=== PATIENT | female | born 1950 | race Caucasian/White ===

== ENCOUNTER 2017-05-31 15:40 | Inpatient (IN) | payer OTHER ==
[~2017-05-31] VITALS: Ht 162.6 cm; Wt 119.3 kg
--- NOTE | ~2017-05-31 | 2DMMODE ---
[facility] [address] [place] [address] 2 D/M-MODE ECHOCARDIOGRAM Name: VALENCIA ARZOLA Room #: 227-P [facility] M.R.#: [id number] Admission: 05/31/17 Attend Phys: Dc Diaz, Discharge: Date of : 54 Date of Service: 06/03/17 1009 Report #: [id number] THIS REPORT FOR: //name// APPROVED REPORT Study performed: 06/03/2017 09:32:12 EXAM: Comprehensive 2D, Doppler, and color-flow Echocardiogram Patient Location: Echo lab Status: routine BSA: 2.20 HR: 92 bpm BP: 161/95 mmHg Rhythm: NSR Other Information Study Quality: Good Indications Dyspnea. Hx: HTN, PE, CVA, DM, morbid obesity. 2D Dimensions RVDd: 36.56 mm LVEF(%): 74.17 (>50%) IVSd: 9.05 (7-11mm) LVOT Diam: 19.27 (18-24mm) LVDd: 49.93 mm PWd: 9.01 (7-11mm) Ascending Ao: 31.43 (22-36mm) LVDs: 28.34 (25-40mm) Aortic Root: 28.88 mm Brown's LVEF: 74.17 % Volumes Left Atrial Volume (Systole) Single Plane 4CH: 51.12 mL Single Plane 2CH: 49.17 mL LA ESV Index: 25.00 mL/m2 Aortic Valve AoV Peak León.: 2.09 m/s AO Peak Gr.: 17.52 mmHg LVOT Max P.16 mmHg AO Mean Gr.: 9.95 mmHg AO V2 Mean: 1.52 m/s LVOT Max V: 1.34 m/s AO V2 VTI: 44.17 cm BRITNEY Vmax: 1.86 cm2 Mitral Valve [facility] [address] [place] [address] 2 D/M-MODE ECHOCARDIOGRAM Name: AVLENCIA ARZOLA Room #: 227-P [facility] M.R.#: [id number] Admission: 05/31/17 Attend Phys: Dc Diaz, Discharge: Date of : 54 Date of Service: 06/03/17 1009 Report #: [id number] E/A Ratio: 0.9 MV Decel. Time: 211.42 ms MV E Max León.: 1.14 m/s MV A León.: 1.30 m/s MV PHT: 61.31 ms IVRT: 62.28 ms Pulmonary Valve PV Peak León.: 1.54 m/s PV Peak Gr.: 9.47 mmHg Pulmonary Vein P Vein S: 0.78 m/s P Vein A: 0.42 m/s P Vein D: 0.60 m/s P Vein A Dur.: 114.2 msec P Vein S/D Ratio: 1.30 Tricuspid Valve TR Peak León.: 2.81 m/s RAP Estimate: 5.00 mmHg TR Peak Gr.: 31.60 mmHg PA Pressure: 37.00 mmHg Left Ventricle The left ventricle is normal size. There is normal LV segmental wall motion. There is normal left ventricular wall thickness. Left ventricular systolic function is normal. LVEF is 60-65%. Mild diastolic dysfunction is present (impaired relaxation pattern). Right Ventricle The right ventricle is normal size. The right ventricular systolic function is normal. Atria The left atrium size is normal. The right atrium size is normal. Aortic Valve The aortic valve is grossly normal in structure. No aortic regurgitation is present. There is no aortic valvular stenosis. Mitral Valve The mitral valve is normal in structure. Mild mitral regurgitation. Tricuspid Valve The tricuspid valve is normal in structure. [place] [address] 2 D/M-MODE ECHOCARDIOGRAM Name: VALENCIA ARZOLA Room #: 227-[facility] IN [facility].#: [id number] Admission: 05/31/17 Attend Phys: Dc Diaz, Discharge: Date of : 54 Date of Service: 06/03/17 1009 Report #: [id number] regurgitation. Estimated PAP is 35-40mmHg. Pulmonic Valve The pulmonary valve is normal in structure. Trace pulmonic regurgitation. Great Vessels The aortic root is normal in size. The ascending aorta is normal in size. IVC is normal in size and collapses >50% with inspiration. Pericardium There is no pericardial effusion. <Conclusion> The left ventricle is normal size. Left ventricular systolic function is normal. LVEF is 60-65%. Mild diastolic dysfunction is present (impaired relaxation pattern). The right ventricle is normal size. The left atrium size is normal. The aortic valve is grossly normal in structure. There is no aortic valvular stenosis. Mild mitral regurgitation. Trace to mild tricuspid regurgitation. Estimated PAP is 35-40mmHg. The aortic root is normal in size. There is no pericardial effusion. <ELECTRONICALLY SIGNED> By: Manjinder Osei MD, FACC 06/03/17 1009 1009 1009 Manjinder Osei MD, FACC /INF
--- NOTE | ~2017-05-31 | EKG ---
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
--- NOTE | ~2017-05-31 | HC ---
[facility] [place] [address] CONSULTATION Name: VALENCIA ARZOLA Room #: 227-P ADM IN M.R.#: [id number] Admission: 05/31/17 Attend Phys: Dc Diaz MD Discharge: Date of : 54 Report #: [id number] THIS REPORT FOR: //name// CC: Dc Omer REFERRING PHYSICIAN: Dr. Dc Diaz. REASON FOR REFERRAL: Dyspnea. HISTORY OF PRESENT ILLNESS: The patient is a 67-year-old white female who presents to Emergency Room with worsening dyspnea, bronchospasm. A pulmonary consultation was requested. The patient is followed longitudinally by Dr. Ruby. She is followed for asthma. She was doing fairly well until about last Tuesday she aspirated a piece of turkey. She was able to cough this out. Ever since then, she has had trouble with bronchospasm and dyspnea. With worsening symptoms, she presented to the Emergency Room. Otherwise, denies any recent febrile illness, night sweats or chills, chest pain, productive cough. Admitting chest x-ray shows mild bibasilar atelectasis. Otherwise, no obvious infiltrates. PAST MEDICAL HISTORY: Notable for depression, panic disorder, agoraphobia, diabetes mellitus type 1, hypertension, allergies, hypogammaglobulinemia, asthma, hypothyroidism, gastroesophageal reflux disease, obstructive sleep apnea on CPAP. PAST SURGICAL HISTORY: Unremarkable. ALLERGIES: DOXYCYCLINE, reactions not specified; LISINOPRIL, reactions not specified; following SULFA drugs, reactions not specified. HOME MEDICATIONS: Reviewed. These include Zyrtec, Dulera 100 mcg 2 puffs twice a day. FAMILY HISTORY: Noncontributory. SOCIAL HISTORY: She has never smoked. Denies any alcohol use. REVIEW OF SYSTEMS: As mentioned above, otherwise 10-point system review negative. PHYSICAL EXAMINATION: [facility] [address] [place] [address] CONSULTATION Name: VALENCIA ARZOLA Room #: 227-P [facility] IN [facility]#: [id number] Admission: 05/31/17 Attend Phys: Dc Diaz MD Discharge: Date of : 54 Report #: [id number] GENERAL: She is awake, alert, in no apparent distress. VITAL SIGNS: Temperature is 98 degrees Fahrenheit, pulse is 110, respiratory rate is 18, blood pressure 140/80 mmHg, saturation 95%. HEENT: Normocephalic, atraumatic. NECK: Supple, without lymphadenopathy or thyromegaly. CHEST: Breath sounds are fair bilaterally with mild expiratory wheezes. CARDIOVASCULAR: Normal S1, S2. There are no murmurs or gallop. There is no JVD. There is no carotid bruit. Pulses are 2+/4+ bilaterally. ABDOMEN: Soft, nontender, no organomegaly or masses felt. GENITOURINARY: Deferred. RECTAL: Deferred. EXTREMITIES: There is no edema, cyanosis or clubbing. LABORATORY DATA: Chest x-ray as mentioned above showing mild bibasilar atelectasis. CT chest angiogram is reviewed showing no evidence of pulmonary embolus, multiple low density lesions throughout the liver are noted. These lesions are previously noted in 2009 and appears to be unchanged. Electrolytes are normal. Liver function enzymes are mildly grossly unremarkable. WBC 4700, hemoglobin 13.9, platelets are normal, eosinophil count is normal. Albumin 3.6. IMPRESSION: 1. Asthma exacerbation, likely due to recent aspiration. 2. Apparent aspiration, etiology unclear, but may need further evaluation. 3. Obstructive sleep apnea, on CPAP. 4. History of major depression and panic disorder. 5. Diabetes mellitus type 1. 6. Hypertension. 7. Hypogammaglobulinemia. 8. Hypothyroidism, uncertain. 9. Gastroesophageal reflux disease. RECOMMENDATION: Recommend corticosteroids, bronchodilators along with broad spectrum antibiotics. Would recommend swallowing evaluation with speech consultation. DVT and GI prophylaxis is recommended. Thank you for this consultation. <ELECTRONICALLY SIGNED> By: Ney Omer MD 06/02/17 1311 1644 20 Ney Omer MD /nt
[~2017-05-31 15:40] MED LIST: BIAXIN 250MG T250 MG PO; DEPAKOTE500 MG PO; DITROPAN XL5 M1 PO; DULERA 100 MCG/13 GM INH; FLONASE INH; HUMALOG100 UNIT/1 SQ; INDAPAMIDE1.25 MG PO; LANTUS SUBQ; NEXIUM40 MG PO; NORVASC 5 MG TAB5 MG PO; POTASSIUM CHLO20 ME1 PO; SINGULAIR 10 MG10 M1 PO; SYNTHROID50 MCG PO; TRAMADOL HCL50 MG PO; ZANTAC 150MG T150 M1 PO; ZOLOFT100 MG PO; ZYRTEC 10 MG TA10 M1 PO; [UNRECOGNIZED DRUG - OTHER] SQ
[2017-05-31 16:45] VITALS: BP 119/50
[2017-05-31 16:55] LABS: HEMATOCRIT 41.8 % (37.0-47.0); HEMOGLOBIN 13.9 gm/dL (12.0-15.0); MCH 30.5 pg (26.0-34.0); MCHC 33.4 g/dL (28.0-37.0); MCV 91.4 fL (80.0-100.0); PLATELET COUNT 190 thou/uL (150-400); RBC 4.57 mil/uL (4.20-5.00); RDW 12.9 % (10.5-14.5); WBC 4.7 thou/uL (4.0-11.0)
[2017-05-31 17:09] LABS: ANION GAP 5 mmol/L (7-16); BUN 11 mg/dL (7-18); CALCIUM 9.1 mg/dL (8.5-10.1); CHLORIDE 102 mmol/L (98-107); CO2 29 mmol/L (21-32); CREATININE 1.3 mg/dL (0.6-1.0); GLUCOSE 187 mg/dL (74-106); POTASSIUM 3.8 mmol/L (3.5-5.1); SODIUM 136 mmol/L (136-145)
[2017-05-31 17:10] LABS: APTT 26.8 Seconds (24.5-32.8)
[2017-05-31 17:18] LABS: ALBUMIN 3.6 g/dL (3.4-5.0); MAGNESIUM 2.1 mg/dL (1.8-2.4); SGOT 27 U/L (15-37); SGPT 26 U/L (30-65); TOTAL BILIRUBIN 0.3 mg/dL (<0.1-1.0); TOTAL PROTEIN 7.1 g/dL (6.4-8.2); TROPONIN-I < 0.04 ng/mL (<0.06)
[2017-05-31 20:02] VITALS: BP 146/87
[2017-05-31 21:02] VITALS: BP 140/61
[2017-06-01 00:31] VITALS: BP 143/56
[2017-06-01 05:45] VITALS: BP 123/59
[2017-06-01 09:53] VITALS: BP 146/80
[2017-06-01] MEDS ORDERED: TOPROL XL25 MG PO (11:22)
[2017-06-01] MEDS ORDERED: LOSARTAN POTAS100 MG PO (11:23)
[2017-06-01] MEDS ORDERED: PRAVACHOL40 MG PO (11:23)
[2017-06-01] MEDS ORDERED: VENLAFAXINE HC150 M1 PO (11:24)
[2017-06-01] MEDS ORDERED: XYZBAC TABLET1 EACH PO (11:28)
[2017-06-01] MEDS ORDERED: VITAMIN D2000 UNI1 PO (11:30)
[2017-06-01] MEDS ORDERED: VENTOLIN HFA INH8 GM INH (11:30)
[2017-06-01 17:04] VITALS: BP 150/44
[2017-06-01 20:16] VITALS: BP 139/64
[2017-06-02 07:10] VITALS: BP 149/75
[2017-06-02 07:30] LABS: HEMATOCRIT 39.4 % (37.0-47.0); HEMOGLOBIN 13.3 gm/dL (12.0-15.0); MCH 30.4 pg (26.0-34.0); MCHC 33.7 g/dL (28.0-37.0); RBC 4.38 mil/uL (4.20-5.00); WBC 11.6 thou/uL (4.0-11.0)
[2017-06-02 07:45] LABS: CALCIUM 9.2 mg/dL (8.5-10.1); CREATININE 1.4 mg/dL (0.6-1.0); POTASSIUM 3.8 mmol/L (3.5-5.1)
[2017-06-02 20:31] VITALS: BP 139/64
[2017-06-02 22:19] LABS: BE(vivo) -4.5 mmol/L (-2 to +3); HCO3 19.2 mmol/L (22.0-26.0); PCO2 31.6 mmHg (35.0-45.0); PO2 80.9 mmHg (80.0-100.0); pH 7.401 (7.360-7.450); sO2 96.1 % (92.0-98.0)
[2017-06-03 07:55] VITALS: BP 140/77
[2017-06-03] MEDS ORDERED: CEFUROXIME500 MG PO (14:31)
[2017-06-03] MEDS ORDERED: AZITHROMYCIN 2250 MG PO (14:32)
[2017-06-03] MEDS ORDERED: PREDNISONE 10 M10 MG PO (14:33)
[2017-06-03 15:01] VITALS: BP 161/95
== END 2017-06-03 16:06 | disposition home or self-care (01) | DRG 178 ==
LOC: ER 15:40 → EROBS 19:03 → 4N 19:03 → SICU 06-01 18:12 → ENTRNSPT 06-03 15:27 → EDTRNSPTSTS 06-03 16:02 → SICU 06-03 16:06
PROVIDERS: Internal Medicine Pulmonary Disease; Physician Assistant
PROC: B24BZZ4 Ultrasonography of Heart with Aorta, Transesophageal (ICD-10-PCS; principal; 2017-06-03)
DX: J69.0 Pneumonitis due to inhalation of food and vomit (principal); J45.901 Unspecified asthma with (acute) exacerbation; F32.9 Major depressive disorder, single episode, unspecified; F41.0 Panic disorder [episodic paroxysmal anxiety]; F41.1 Generalized anxiety disorder; G47.33 Obstructive sleep apnea (adult) (pediatric); E55.9 Vitamin D deficiency, unspecified; I27.20 Pulmonary hypertension, unspecified; I10 Essential (primary) hypertension; E10.9 Type 1 diabetes mellitus without complications; K21.9 Gastro-esophageal reflux disease without esophagitis; E03.9 Hypothyroidism, unspecified; Z79.899 Other long term (current) drug therapy; Z88.2 Allergy status to sulfonamides; Z88.8 Allergy status to other drugs, medicaments and biological substances
CPT/HCPCS: 10091; 15000

== ENCOUNTER → 2017-06-29 | Outpatient (CLI) | payer OTHER ==
[~2017-06-29] MED LIST changes: +AZITHROMYCIN 2250 MG PO; +CEFUROXIME500 MG PO; +LOSARTAN POTAS100 MG PO; +PRAVACHOL40 MG PO; +PREDNISONE 10 M10 MG PO; +TOPROL XL25 MG PO; +VENLAFAXINE HC150 M1 PO; +VENTOLIN HFA INH8 GM INH; +VITAMIN D2000 UNI1 PO; +XYZBAC TABLET1 EACH PO
== END ==
LOC: CAT 06:35
DX: J45.991 Cough variant asthma (principal); Z98.890 Other specified postprocedural states

== ENCOUNTER → 2017-08-05 | Outpatient (CLI) | payer OTHER ==
--- NOTE | ~2017-08-05 | 2DMMODE ---
[facility] [place] [address] 2 D/M-MODE ECHOCARDIOGRAM Name: VALENCIA ARZOLA Room #: REG CL [facility]#: [id number] Admission: 08/05/17 Attend Phys: Kimberlee Mcgovern Discharge: Date of : 54 Date of Service: 08/05/17 1433 Report #: [id number] THIS REPORT FOR: //name// APPROVED REPORT Study performed: 08/05/2017 13:17:10 EXAM: Limited 2D, Doppler, and color-flow Echocardiogram Patient Location: Out-Patient Status: routine BSA: 2.20 HR: 75 bpm BP: 155/88 mmHg Rhythm: NSR Other Information Study Quality: Adequate Indications Follow up echo for SOB, PHTN. Hx: HTN, PE, DM (Complete echo done 06/03/17) Aortic Valve AoV Peak León.: 1.53 m/s AO Peak Gr.: 9.31 mmHg Tricuspid Valve TR Peak León.: 2.37 m/s RAP Estimate: 5.00 mmHg TR Peak Gr.: 22.53 mmHg PA Pressure: 28.00 mmHg Left Ventricle The left ventricle is normal size. There is normal LV segmental wall motion. Left ventricular systolic function is normal. LVEF is 60%. Right Ventricle The right ventricle is normal size. The right ventricular systolic function is normal. Atria Left atrium is at the upper limits of normal. The right atrium size is normal. Aortic Valve [facility] [address] [place] [address] 2 D/M-MODE ECHOCARDIOGRAM Name: VALENCIA ARZOLA Room #: REG CL [facility]#: [id number] Admission: 08/05/17 Attend Phys: Kimberlee Mcgovern Discharge: Date of : 54 Date of Service: 08/05/17 1433 Report #: [id number] Aortic valve is trileaflet. No aortic regurgitation is present. There is no aortic valvular stenosis. Mitral Valve The mitral valve is normal in structure. Mild to moderate mitral regurgitation. Tricuspid Valve The tricuspid valve is normal in structure. Mild tricuspid regurgitation. Estimated PAP is 28mmHg. Great Vessels IVC is normal in size and collapses >50% with inspiration. Pericardium There is no pericardial effusion. <Conclusion> The left ventricle is normal size. Left ventricular systolic function is normal. The right ventricle is normal size. Left atrium is at the upper limits of normal. Aortic valve is trileaflet. Mild to moderate mitral regurgitation. Mild tricuspid regurgitation. Estimated PAP is 28mmHg. <ELECTRONICALLY SIGNED> By: Torrey Hutchins MD 08/05/17 1433 143 1433 Torrey Hutchins MD /IDALIA
== END ==
LOC: CV 12:58
DX: I08.3 Combined rheumatic disorders of mitral, aortic and tricuspid valves (principal); I10 Essential (primary) hypertension; E11.9 Type 2 diabetes mellitus without complications

== ENCOUNTER → 2018-04-12 | Outpatient (CLI) | payer OTHER ==
[~2018-04-12] VITALS: Ht 162.6 cm; Wt 119.7 kg
[~2018-04-12] MED LIST changes: +AMERGE2.5 MG PO; +ASPIRIN325 PO; +BENICAR40 MG PO; +CRESTOR20 MG PO; +DULOXETINE HCL60 MG PO; +HYDROCHLOROTHIA25 M2 PO; +PRILOSEC 10MG C10 MG PO; +SYMBICORT160 MCG/4. INH
[2018-04-12 07:21] LABS: HEMATOCRIT 42.5 % (37.0-47.0); HEMOGLOBIN 14.5 gm/dL (12.0-15.0); MCH 30.8 pg (26.0-34.0); MCHC 34.1 g/dL (28.0-37.0); MCV 90.2 fL (80.0-100.0); RBC 4.71 mil/uL (4.20-5.00); RDW 13.1 % (10.5-14.5); WBC 6.7 thou/uL (4.0-11.0)
[2018-04-12 07:29] LABS: CALCIUM 9.5 mg/dL (8.5-10.1); CREATININE 1.2 mg/dL (0.6-1.0); POTASSIUM 3.7 mmol/L (3.5-5.1)
[2018-04-12 07:30] VITALS: BP 128/89
--- NOTE | 2018-04-12 08:39 | EKG ---
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1950 Requested By: Manjinder Osei Order Number: [id number] MD: Den Castillo Measurements Intervals [place] Rate: 63 P: -1 WA: 158 QRS: -18 QRSD: 98 T: 23 QT: 409 QTc: 419 Interpretive Statements Sinus rhythm Abnormal R-wave progression, early transition Inferior infarct, old Baseline wander in lead(s) V3 Compared to ECG 05/31/2017 16:40:30 No significant change was found Electronically Signed On 04-12-2018 8:39:14 PRIMER [employer]OXER by Den Castillo [email or web address] ��������������������������������������������� <ELECTRONICALLY SIGNED> ���������������������������������������� By: Den Castillo MD, [facility] ��������������������������������������������� 04/12/18 0839 0724 Den Castillo MD, [facility] /EPI
--- NOTE | 2018-04-12 13:04 | CATHLAB ---
[facility] [address] [place] [address] INVASIVE PROCEDURE REPORT Name: VALENCIA ARZOLA [id number] ������������� Admission: 04/12/18 ������������� Attend Phys: Manjinder Osei, Discharge: ��� ������������� ��� Date of : 54 Date of Service: 04/12/18 1304 �� Report #: [id number] �������� ��������������������������������������������[id number] THIS REPORT FOR: //name// APPROVED REPORT Study performed: 04/12/2018 08:35:24 Patient Details Patient Status: Out-Patient Room #: The patient is a 67 year-old female Event Personnel Manjinder Osei Contract Negotiator, Antwon Guillen RN, Criss, Griselda Monitor, Geraldo Diggs Scrub Procedures Performed Art Access - R femoral artery* Neeraj Access - R femoral vein 51131 Initial Mod Sed Same Phys/QHP Gr5y [id number] 20560 Mod Sed Same Phys/QHP Ea 260437 Right and Left Heart Cath w/or w/o Coronarie [id number] [facility] Aortogram Abdominal Peripheral Angio 054695 Hemostasis w/ Mynx Indication Chest pain Procedure Narrative The patient was brought electively to the Cardiac Catheterization Laboratory and was prepped and draped in a sterile manner. The Right Groin^ was infiltrated with 1% Lidocaine subcutaneous anesthesia. A Right Heart Catheterization was performed with a 7 Fr. [place]-Charity catheter and pressure were recorded. Cardiac outputs were obtained by the Thermal Dilution method. A PINNACLE 6FR Sheath #[id number] sheath was inserted into the RFA^. Coronary angiography was performed using coronary diagnostic catheters. The right coronary system was accessed and visualized with a JR 4 catheter. The left coronary system was accessed and visualized with a Pigtail catheter. The left ventricle was accessed and visualized with a JL 4 catheter. Left ventriculogram was performed in BRUCE projection. An aortogram of the abdominal aorta was performed. Pre-demployment femoral angiogram was performed . Closure device was deployed with a 6 Fr Mynx. The patient tolerated the procedure well and there were no complications associated with the procedure. There was no hematoma. Intraoperative Conscious Sedation Sedation start time: 08:52 Case end Time: [facility] [address] [place] [address] INVASIVE PROCEDURE REPORT Name: VALENCIA ARZOLA [facility] [id number] ������������� Admission: 04/12/18 ������������� Attend Phys: Manjinder Osei, Discharge: ��� ������������� ��� Date of : 54 Date of Service: 04/12/18 1304 �� Report #: [id number] �������� ��������������������������������������������[id number] 09:24 Fentanyl 50 mcg Versed 2 mg Fluoro Time: 2.04 minutes Dose: DAP 4351.00 cGycm2 408 mGy Contrast Type and Amount: Visipaque 110 ml Hemodynamics The right atrial mean pressure is 19 mmHg. The right ventricular pressure is 43/9 mmHg. The pulmonary artery pressure is 45/14 mmHg with a mean of 29 mmHg. The mean pulmonary capillary wedge pressure is 20 mmHg. The aortic pressure is 126/61 mmHg with a mean of 82 mmHg. The left ventricular pressure is 123/9 mmHg with a mean of mmHg. The left ventricular end diastolic pressure is 25 mmHg. The cardiac output using thermo method is 4.45 L/min. The cardiac index using thermo method is 2.02 L/min/m2. Conclusion #1 successful right heart catheterization with cardiac output by thermodilution see above hemodynamics #2 normal left ventricular size and systolic function EF 50-55% #3 abdominal aortogram revealing normal caliber abdominal aorta single bilateral renal arteries widely patent iliac system widely patent #4 left main mild disease giving rise to LAD and circumflex #5 the LAD is mild to moderately disease in the mid vessel 40-50% after a diagonal takeoff and diffusely diseased small vessel to the apex. #6 circumflex OM nondominant with mild disease #7 large dominant right coronary artery with minimal irregularity extending into the inferior and posterior lateral wall Recommendations and plan: Continue aggressive risk factor modification. No indication for coronary intervention. Mild elevation in pulmonary pressures. Weight loss aerobic activity will benefit. We'll discuss with pulmonary. ��������������������������������������������� <ELECTRONICALLY SIGNED> ���������������������������������������� By: Manjinder Osei MD, FACC ��������������������������������������������� 04/12/18 1304 130 130 Manjinder Osei MD, FACC /INF
== END | disposition home or self-care (01) ==
LOC: CATH 06:48
PROVIDERS: Internal Medicine Cardiovascular Disease
DX: I25.10 Atherosclerotic heart disease of native coronary artery without angina pectoris (principal); F32.9 Major depressive disorder, single episode, unspecified; I10 Essential (primary) hypertension; E10.9 Type 1 diabetes mellitus without complications; E78.5 Hyperlipidemia, unspecified; E03.9 Hypothyroidism, unspecified; J45.909 Unspecified asthma, uncomplicated; K21.9 Gastro-esophageal reflux disease without esophagitis; E78.00 Pure hypercholesterolemia, unspecified; Z96.651 Presence of right artificial knee joint; Z79.4 Long term (current) use of insulin; Z90.710 Acquired absence of both cervix and uterus; Z98.890 Other specified postprocedural states; Z79.899 Other long term (current) drug therapy

== ENCOUNTER → 2019-07-31 | Outpatient (CLI) | payer OTHER | LOC: RAD 13:16 | PROVIDERS: ATTEND Internal Medicine Pulmonary Disease | DX: J98.4 Other disorders of lung (principal); J45.991 Cough variant asthma ==

== ENCOUNTER → 2021-02-19 | Outpatient (CLI) | payer OTHER ==
--- NOTE | ~2021-02-19 | PFR/MVV ---
[facility] [place] [address] PULMONARY FUNCTION MVV/REPORT Name: VALENCIA ARZOLA Room #: REG [facility]#: [id number] Admission: 02/19/21 Attend Phys: Jatin Beltran MD Discharge: Date of : 54 Report #: [id number] THIS REPORT FOR: //name// >> SPIROMETRY: (BTPS) Height: in cm Weight: lbs kg Exam Date: PRE-RX POST-RX PRED BEST %PRED BEST %PRED %CHG FVC LITERS . . . . . . FEV1 LITERS . . . . . . FEV1/FVC % . . . . . . IDY68-98% L/Sec . . . . . . PEF L/SEC . . . . . . FEF50/FIF50 UNITLESS . . . . . . MVV L/Min . . . f 1/Min . . . >> LUNG VOLUMES: (BTPS) PRE-RX POST-RX PRED AVG %PRED AVG %PRED %CHG VC Liters . . . . . . TLC Liters . . . . . . RV Liters . . . . . . RV/TLC % . . . . . . FRC PL Liters . . . . . . FRC N2 Liters . . . . . . ERV Liters . . . . . . IC Liters . . . . . . >> DIFFUSION: DLCO ml/Min/mmHg . . . . . . DL Geno ml/Min/mmHg . . . . . . DLCO/VA ml/Min/mmHg . . . . . . VA Liters . . . . . . COMMENTS: COMMENTS: >> RESISTANCE: [facility] [address] [place] [address] PULMONARY FUNCTION MVV/REPORT Name: VALENCIA ARZOLA Room #: REG [facility]#: [id number] Admission: 02/19/21 Attend Phys: Jatin Beltran MD Discharge: Date of : 54 Report #: [id number] PRE-RX PRED AVG %PRED Raw Total cmH20/L/Sec . . . Raw Insp cmH20/L/Sec . . . Raw Exp cmH20/L/Sec . . . Raw cmH20/L/Sec . . . Gaw L/Sec/cmH20 . . . sRaw cmH20 Sec . . . sGaw l/cmH20 Sec . . . Vtq Liters . . . # = OUTSIDE 95% CONFIDENCE INTERVAL CALIBRATION: PRED: 3.00 ACTUAL: EXP 3.01 INSP 3.02 [facility]-OL11-26 [facility] [address] N-1804-4 >> INTERPRETATION/IMPRESSION: DATE OF SERVICE: 02/19/2021 PULMONARY FUNCTION STUDIES SPIROMETRY: FEV1 is 2.02 liters (98% predicted), FVC is 2.44 liters (85% predicted), FEV1/FVC ratio is 83%. There is no significant response to bronchodilator therapy. LUNG VOLUMES: Total lung capacity is decreased 3.21 liters (66% predicted). IC to ERV ratio is increased at 2.58 liters to 0.17 liters. Diffusing capacity is moderately decreased at 66%. IMPRESSION: Pulmonary function studies are consistent with a moderate restrictive airflow defect. There is no significant response to bronchodilator therapy. 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 Diffusing capacity is moderately decreased. By: Jatin Beltran MD /nt
--- NOTE | 2021-03-21 11:50 | PFR/MVV ---
[facility] [place] [address] PULMONARY FUNCTION MVV/REPORT Name: VALENCIA ARZOLA Room #: REG [facility]#: [id number] Admission: 02/19/21 Attend Phys: Jatin Beltran MD Discharge: Date of : 54 Report #: [id number] THIS REPORT FOR: //name// >> SPIROMETRY: (BTPS) Height: 64 in cm Weight: 254 lbs kg Exam Date: 02/19/21 PRE-RX POST-RX PRED BEST %PRED BEST %PRED %CHG FVC LITERS . 2.88 . 2.44 . 85 . 2.38 . 83 . -2 FEV1 LITERS . 2.06 . 2.02 . 98 . 2.01 . 97 . -1 FEV1/FVC % . 72 . 83 . 115 . 84 . 117 . 2 GOE85-45% L/Sec . 2.35 . 2.41 . 103 . 2.51 . 107 . 4 PEF L/SEC . 5.53 . 5.94 . 107 . 5.39 . 97 . -9 FEF50/FIF50 UNITLESS . 3.16 . 3.47 . 110 . 3.13 . 99 . -10 MVV L/Min . 86 . 72 . 84 f 1/Min . . . >> LUNG VOLUMES: (BTPS) PRE-RX POST-RX PRED AVG %PRED AVG %PRED %CHG VC Liters . 2.88 . 2.77 . 96 . . . TLC Liters . 4.83 . 3.21 . 66 . . . RV Liters . 1.92 . 0.44 . 23 . . . RV/TLC % . 40 . 14 . 35 . . . [address] Liters . 1.94 . 0.63 . 32 . . . FRC N2 Liters . 1.94 . . . . . ERV Liters . 0.97 . 0.14 . 18 . . . IC Liters . 1.94 . 2.58 . 133 . . . >> DIFFUSION: DLCO ml/Min/mmHg . 26.2 . 17.3 . 66 . . . DL Geno ml/Min/mmHg . 26.2 . 17.3 . 66 . . . DLCO/VA ml/Min/mmHg . 3.56 . 5.00 . 140 . . . VA Liters . 3.45 . . . . . COMMENTS: COMMENTS: >> RESISTANCE: [facility] [address] [place] [address] PULMONARY FUNCTION MVV/REPORT Name: VALENCIA ARZOLA Room #: [facility]#: [id number] Admission: 02/19/21 Attend Phys: Jatin Beltran MD Discharge: Date of : 54 Report #: [id number] PRE-RX PRED AVG %PRED Raw Total cmH20/L/Sec . . 4.34 . Raw Insp cmH20/L/Sec . . 3.46 . Raw Exp cmH20/L/Sec . . 4.98 . Raw cmH20/L/Sec . 2.06 . 3.22 . 1.56 Gaw L/Sec/cmH20 . 0.466 . 0.310 . 67 sRaw cmH20 Sec . 4.01 . 8.78 . 219 sGaw l/cmH20 Sec . 0.250 . 0.114 . 46 Vtq Liters . . 2.73 . # = OUTSIDE 95% CONFIDENCE INTERVAL CALIBRATION: PRED: 3.00 ACTUAL: EXP 3.01 INSP 3.02 [facility] N-1804-4 >> INTERPRETATION/IMPRESSION: DATE OF SERVICE: 02/19/2021 NO DICTATION <ELECTRONICALLY SIGNED> By: Jatin Beltran MD 03/21/21 1150 Jatin Beltran MD /nt
== END ==
LOC: RAD 09:21
PROVIDERS: ATTEND Pediatrics
DX: J45.40 Moderate persistent asthma, uncomplicated (principal); Z20.822 Contact with and (suspected) exposure to COVID-19